=== PATIENT | male | born 1995 | race Two or more races ===

== ENCOUNTER 2025-06-25 10:41 | Emergency (ER) | payer SELFPAY ==
[~2025-06-25] VITALS: Ht 177.8 cm; Wt 88.5 kg
[2025-06-25] MEDS ORDERED: ONDANSETRON HCL/PF 4 MG/2 ML VIAL ONE (11:41)
[2025-06-25] MEDS ORDERED: FAMOTIDINE/PF INJ 20 MG/2 ML VIAL IV ONE (11:41)
[2025-06-25] MEDS: IV NS 0.9% 1,000 ML BAG IV ONE (11:42)
[2025-06-25] MEDS: FAMOTIDINE/PF INJ 20 MG/2 ML VIAL IV ONE (11:45)
[2025-06-25] MEDS: ONDANSETRON HCL/PF 4 MG/2 ML VIAL IVP ONE (11:45)
[2025-06-25 11:46] LABS: PLATELET COUNT (AUTO) 169 K/uL (150-450); RED BLOOD CELL COUNT(AUTO) 4.92 MIL/uL (4.5-6.0); RED CELL DISTRIBUTION WIDTH 13.2 % (11.5-15.0); WHITE BLOOD COUNT (AUTO) 7.5 K/uL (4.3-11.0)
[2025-06-25 12:07] LABS: ASPARTATE AMINOTRANSFERASE 28.0 U/L (15-37); CALCIUM, SERUM 9.1 mg/dL (8.5-10.1); CREATININE 1.2 mg/dL (0.6-1.3); SODIUM SERUM 141.0 mmol/L (136-145); TOTAL PROTEIN, SERUM 8.2 g/dL (6.4-8.2); UREA NITROGEN, BLOOD 14.0 mg/dL (7-18)
[2025-06-25 12:49] LABS: APPEARANCE,URINE CLEAR (CLEAR); BLOOD, URINE NEGATIVE Ery/uL (NEGATIVE); LEUKOCYTE ESTERASE ,URINE NEGATIVE (NEGATIVE); NITRITE, URINE NEGATIVE (NEGATIVE); UGLUCOSE NEGATIVE (NEGATIVE)
[2025-06-25] MEDS ORDERED: ONDA4TAB5 PO (13:01)
[2025-06-25 13:02] LABS: ADD URINE CULTURE YES
[2025-06-25 13:03] LABS: SQUAMOUS EPITHELIAL CELL,UR Many /HPF (None Seen)
[2025-06-25 13:39] VITALS: BP 131/67; TEMP 98; O2SAT 98
== END 2025-06-25 13:40 | disposition home or self-care (01) ==
LOC: ER 10:41
DX: R11.10 Vomiting, unspecified (principal); R19.7 Diarrhea, unspecified
CPT/HCPCS: 99284; 96374; 96361; 96375; 85025; 80048; 87086; 83690; 80076; 81001; 36415; J1308; J2405; J7030